=== PATIENT | female | born 1980 | race Caucasian/White ===

== ENCOUNTER 2018-02-02 13:18 | Emergency (ER) | payer OTHER ==
[~2018-02-02] VITALS: Ht 165.1 cm; Wt 83.2 kg
[~2018-02-02 13:18] MED LIST: CEPH500C2 PO; IBUPROFEN; methylprednisolone
[2018-02-02] MEDS ORDERED: KETOROLAC 30MG/ML VIAL IM ONE (14:45)
[2018-02-02 14:53] LABS: CLARITY URINE CLEAR (CLEAR); COLOR URINE ORANGE (YELLOW); KETONES URINE NEGATIVE (NEGATIVE); LEUKOCYTE ESTERASE URINE NEGATIVE (NEGATIVE); NITRITE URINE NEGATIVE (NEGATIVE); OCCULT BLOOD URINE 3+ (NEGATIVE); PH URINE 6.5 (4.5-8.0); PROTEIN URINE NEGATIVE (NEGATIVE); SPECIFIC GRAVITY URINE 1.011 (1.005-1.030); UROBILINOGEN URINE 0.2 E.U./dL (0.2-1.0)
[2018-02-02 16:07] VITALS: BP 129/87
== END 2018-02-02 16:34 | disposition home or self-care (01) ==
LOC: ER 13:18
DX: M54.5 Low back pain (principal); M79.1 Myalgia; Z90.49 Acquired absence of other specified parts of digestive tract
CPT/HCPCS: 81003; 81025; 96372; 99283; J1885

== ENCOUNTER 2019-04-18 17:18 | Emergency (ER) | payer OTHER ==
[~2019-04-18] VITALS: Ht 165.1 cm; Wt 82.0 kg
[2019-04-18] MEDS ORDERED: KETOROLAC 30MG/ML VIAL IV STA (18:07)
[2019-04-18] MEDS ORDERED: ONDANSETRON HCL 4MG/2ML INJ IV STA (18:07)
[2019-04-18] MEDS ORDERED: VISCOUS LIDOCAINE 2% 15 ML UDC PO STA (18:07)
[2019-04-18] MEDS ORDERED: MAGNESIUM/ALUMINUM HYDROXIDE/SIMETHICONE 30ML UDC PO STA (18:07)
[2019-04-18] MEDS ORDERED: SODIUM CHLORIDE 0.9% 1,000 ML IV ONE (18:07)
[2019-04-18] MEDS ORDERED: DICYCLOMINE 10 MG/5 ML ORAL SYR PO STA (18:07)
[2019-04-18 19:53] LABS: CHLORIDE 106 mEq/L (98-107)
[2019-04-18 19:56] LABS: BASOPHILS % 0.7 % (0.0-2.0); EOSINOPHILS % 1.1 % (0.0-5.0); HEMATOCRIT. 40.2 % (36.0-48.0); HEMOGLOBIN. 13.5 g/dL (12.0-16.0); LYMPHOCYTES % 19.2 % (20.0-50.0); MEAN CORPUSCULAR HEMOGLOBIN 29.2 pg (28.0-32.0); MEAN CORPUSCULAR VOLUME 86.5 fL (81.0-99.0); MEAN PLATELET VOLUME 8.4 fl (7.4-10.4); MONOCYTES % 7.8 % (2.0-8.0); NEUTROPHILS % 71.2 % (40.0-76.0); PLATELET 308 x1000/uL (130-400); RED BLOOD CELL COUNT 4.65 mill/uL (4.2-5.4); RED CELL DISTRIBUTION WIDTH 14.9 % (11.6-14.6)
[2019-04-18 19:57] LABS: CLARITY URINE CLEAR (CLEAR); COLOR URINE YELLOW (YELLOW); KETONES URINE TRACE (NEGATIVE); LEUKOCYTE ESTERASE URINE NEGATIVE (NEGATIVE); NITRITE URINE NEGATIVE (NEGATIVE); OCCULT BLOOD URINE NEGATIVE (NEGATIVE); PROTEIN URINE NEGATIVE (NEGATIVE); SPECIFIC GRAVITY URINE 1.009 (1.005-1.030); UROBILINOGEN URINE 0.2 E.U./dL (0.2-1.0)
[2019-04-18] MEDS ORDERED: ACETAMINOPHEN WITH CODEINE 300/30MG TABLET PO ONE (20:15)
[2019-04-18 20:47] VITALS: BP 135/85
== END 2019-04-19 02:54 | disposition home or self-care (01) ==
LOC: ER 17:18
DX: R11.2 Nausea with vomiting, unspecified (principal); R51 Headache; R19.7 Diarrhea, unspecified
CPT/HCPCS: 36415; 80053; 81003; 81025; 83690; 85025; 96361; 96374; 96375; 99283; J1885; J2405; J7030

== ENCOUNTER 2023-04-20 19:02 | Emergency (ER) | payer OTHER ==
[~2023-04-20] VITALS: Ht 167.6 cm; Wt 65.0 kg
[2023-04-20 19:15] VITALS: BP 117/85; PULSE 85; RESP 20; TEMP 98.2; O2SAT 99
[2023-04-20] MEDS ORDERED: IBUPROFEN 600MG TABLET PO STA (20:41)
== END 2023-04-20 23:26 | disposition home or self-care (01) ==
LOC: ER 19:02
DX: I73.00 Raynaud's syndrome without gangrene (principal); M54.9 Dorsalgia, unspecified; G43.909 Migraine, unspecified, not intractable, without status migrainosus; Z90.49 Acquired absence of other specified parts of digestive tract
CPT/HCPCS: 81025; 99282